=== PATIENT | female | born 1940 | race Hispanic/Latino ===

== ENCOUNTER 2023-12-06 18:43 | Emergency (ER) | payer OTHER ==
[~2023-12-06] VITALS: Ht 144.8 cm; Wt 49.9 kg
[2023-12-06 21:43] LABS: RAPID GROUP A STREP negative (NEGATIVE)
[2023-12-06 21:58] LABS: COVID19 (SARS ANTIGEN RAPID) PRESUMPTIVE NEGATIVE (NEGATIVE)
[2023-12-06 21:59] LABS: INFLUENZA TYPE A Negative For Type A (NEGATIVE); INFLUENZA TYPE B Negative For Type B (NEGATIVE)
[2023-12-06 22:17] LABS: BASOPHILS # (AUTO) 0.02 K/uL (0.00-0.20); BASOPHILS % (AUTO) 0.2 % (0.0-5.0); EOSINOPHILS # (AUTO) 0.19 K/uL (0.00-0.70); EOSINOPHILS % (AUTO) 2.1 % (0.0-8.0); HEMATOCRIT 31.4 % (36-48); IMMATURE GRANULOCYTE ABSOLUTE 0.02 K/uL (0-1); LYMPHOCYTES # (AUTO) 2.2 K/uL (1.0-4.8); LYMPHOCYTES % (AUTO) 23.9 % (21.0-51.0); MEAN CORPUSCULAR HEMOGLOBIN 30.1 pg (27.0-33.0); MEAN CORPUSCULAR HGB CONC 34.4 g/dL (32.0-36.0); MEAN CORPUSCULAR VOLUME 87.5 fL (79-99); MONOCYTES # (AUTO) 0.8 K/uL (0.1-1.0); MONOCYTES % (AUTO) 9.1 % (3.0-13.0); NEUTROPHILS # (AUTO) 5.9 K/uL (1.8-7.7); NEUTROPHILS % (AUTO) 64.5 % (40.0-77.0); PLATELET COUNT (AUTO) 311 K/uL (130-400); RED BLOOD CELL COUNT(AUTO) 3.59 MIL/uL (4.00-5.50); RED CELL DISTRIBUTION WIDTH 11.4 % (11.0-15.5); WHITE BLOOD COUNT (AUTO) 9.1 K/uL (4.8-10.8)
[2023-12-06 22:24] LABS: CREATININE 0.6 mg/dL (0.5-1.0); POTASSIUM 4.4 mmol/L (3.5-5.1)
[2023-12-06 22:35] LABS: ALBUMIN 3.5 g/dL (3.5-5.0); BILIRUBIN,TOTAL 0.3 mg/dL (0.2-1.0); TOTAL PROTEIN, SERUM 8.2 g/dL (6.0-8.3)
[2023-12-06 22:56] LABS: APPEARANCE,URINE CLEAR (CLEAR); BILIRUBIN,URINE NEGATIVE (NEGATIVE); COLOR,URINE COLORLESS (YELLOW); GLUCOSE, URINE (UA) NEGATIVE (NEGATIVE); KETONES,URINE NEGATIVE (NEGATIVE); LEUKOCYTE ESTERASE ,URINE NEGATIVE Leu/uL (NEGATIVE); NITRATE,URINE NEGATIVE (NEGATIVE); OCCULT BLOOD,URINE NEGATIVE (NEGATIVE); PROTEIN,URINE NEGATIVE (NEGATIVE); UROBILINOGEN,URINE 0.2 mg/dL (0.2-1.0)
[2023-12-06 22:58] LABS: ADD UA MICROSCOPIC NO
[2023-12-06 23:30] VITALS: BP 166/82; PULSE 83; RESP 17; O2SAT 98
== END 2023-12-07 00:21 | disposition home or self-care (01) ==
LOC: EDH 18:43
DX: R50.9 Fever, unspecified (principal); H92.03 Otalgia, bilateral; D64.9 Anemia, unspecified; J98.8 Other specified respiratory disorders; I10 Essential (primary) hypertension; E11.9 Type 2 diabetes mellitus without complications; E78.00 Pure hypercholesterolemia, unspecified; Z20.822 Contact with and (suspected) exposure to COVID-19
CPT/HCPCS: 36415; 71045; 80053; 81003; 85025; 87426; 87804; 87880

== ENCOUNTER 2025-02-02 13:18 | Observation (INO) | payer OTHER ==
[~2025-02-02] VITALS: Ht 149.9 cm; Wt 52.3 kg
--- NOTE | 2025-02-02 13:34 | EKG ---
[facility] Test Date: 2025-02-02 Test Time: 13:31:35 Pat Name: JAMES LOPEZ Department: EDH Room: ED Gender: F Demi Chef: [id number] : 1940 Requested By: JEFFREY SHAIKH Order Number: [id number] Reading MD: Eleno Cheema Measurements Intervals [place] Rate: 86 P: 57 ME: 137 QRS: 29 QRSD: 85 T: 65 QT: 367 QTc: 440 Interpretive Statements Sinus rhythm Probable left atrial enlargement No previous ECG available for comparison Electronically Signed On 02-02-2025 19:45:54 CDT by Eleno Cheema Please click the below link to view image of tracing.
--- NOTE | 2025-02-02 13:37 | ERN ---
General Chief Complaint: Shortness of Breath Stated Complaint: SOB Time Seen by MD: 13:20 Source: patient History of Present Illness Initial Comments Patient is a an 84-year-old female coming in complaining of chest pressure and shortness of breath. Patient states that these symptoms began earlier today. Via EMS patient the nitroglycerin aspirin as as breathing treatments states her symptoms improved. Patient received nitroglycerin and aspirin via EMS. Patient has a history of hypertension cholesterol and diabetes. Allergies: Coded Allergies: No Known Drug Allergies (Unverified Allergy, Unknown, 02/02/25) Past Medical History Past Medical History: Diabetes-Type II, High Cholesterol, Hypertension Past Surgical History: None Social History Social History: Negative ROS Dictation CONSTITUTIONAL: No chills, no fever, no weakness, no diaphoresis, no malaise. HEAD/FACE: No signs of trauma. EENT: No eye pain, no blurred vision, no tearing, no double vision, no ear pain, no ear discharge, no nose pain, no nasal congestion, no throat pain, no throat swelling, no mouth pain. RESPIRATORY: No cough, no orthopnea, SOB, no stridor, no wheezing. CARDIOVASCULAR: chest pain, no edema, no palpitations, no syncope. GASTROINTESTINAL/ABDOMINAL: No abdominal pain, no constipation, no diarrhea, no nausea, no vomiting. GENITOURINARY: No abnormal discharge, no dysuria, no frequent urination, no hematuria. No complaints of pain in the genitals. MUSCULOSKELETAL: No back pain, no gout, no joint pain, no joint swelling, no muscle pain, no muscle stiffness, no neck pain. INTEGUMENTARY: No change in color, no change in hair/nails, no dryness, no lesion, no lumps, no rash. NEUROLOGICAL/PSYCH: No anxiety, not depressed, no emotional problem, no headache, no numbness, no pre-existing deficit, no history of seizures, no tremors, no weakness. HEMATOLOGIC/LYMPHATIC: Not anemic, no history of blood clots, no apparent bleeding, no bruising, glands not swollen. All Systems Negative, Except as Noted. Physical Exam Physical Exam Dictation VITAL SIGNS: Reviewed. GENERAL APPEARANCE: Alert, oriented x3, no acute distress, obese. HEAD AND FACE: Non-traumatic. EYES: PERRL, pink conjunctivas, eyelid no trauma, anterior chamber clear. EARS: Pinnas intact and no signs of trauma or erythema. Ear canals clear and no discharge. TMs no erythema. NOSE: No discharge, no bleeding. OROPHARYNX: Mouth normal, teeth no caries, tongue pink. Pharynx clear, no erythema. Tonsils no exudates, no abscesses noted. Mucous membrane moist. NECK: Supple, non-tender, no thyromegaly, no masses, no JVD, no bruits. BREAST: Deferred. CHEST: No tenderness, no crepitus, no paradoxical movement, no retractions. LUNGS: Clear, well-ventilated, symmetric, no rales, no wheezing, no rhonchi, no stridor, good breath sounds bilaterally. HEART: Regular rate, regular rhythm, no murmur, no gallops. VASCULAR: No peripheral edema. ABDOMEN: Soft, positive bowel sounds, nondistended, no guarding, nontender, no r ebound, no masses no hepatomegaly, no splenomegaly, no Ayala's sign, no hernias. RECTAL: Deferred. GENITAL: Deferred. NEUROLOGICAL: Normal speech, gross motor function intact, gross sensory function intact. MUSCULOSKELETAL: Neck nontender, full range of motion, back nontender, full range of motion. EXTREMITIES: Nontender, full range of motion. SKIN: Color pink, dry, no turgor, no rash, no lacerations, no abrasions, no contusions. LYMPHATICS: Deferred. Results Laboratory and Microbiology Lab and Micro Result Laboratory Tests Test 02/02/25 13:34 02/02/25 15:09 02/02/25 15:42 02/02/25 15:55 White Blood Count 5.5 K/uL (4.8-10.8) Red Blood Count 4.19 MIL/uL (4.00-5.50) Hemoglobin 13.2 g/dL (12.0-16.0) Hematocrit 38.5 % (36-48) Mean Corpuscular Volume 91.9 fL (79-99) Mean Corpuscular Hemoglobin 31.5 pg (27.0-33.0) Mean Corpuscular Hemoglobin Concent 34.3 g/dL (32.0-36.0) Red Cell Distribution Width 12.9 % (11.0-15.5) Platelet Count 235 K/uL (130-400) Mean Platelet Volume 9.4 fL (7.5-10.5) Immature Granulocyte % (Auto) 0.5 % (0-1) Neutrophils (%) (Auto) 58.0 % (40.0-77.0) Lymphocytes (%) (Auto) 32.7 % (21.0-51.0) Monocytes (%) (Auto) 6.0 % (3.0-13.0) Eosinophils (%) (Auto) 2.6 % (0.0-8.0) Basophils (%) (Auto) 0.2 % (0.0-5.0) Neutrophils # (Auto) 3.2 K/uL (1.8-7.7) Lymphocytes # (Auto) 1.8 K/uL (1.0-4.8) Monocytes # (Auto) 0.3 K/uL (0.1-1.0) Eosinophils # (Auto) 0.14 K/uL (0.00-0.70) Basophils # (Auto) 0.01 K/uL (0.00-0.20) Absolute Immature Granulocyte (auto 0.03 K/uL (0-1) Nucleated Red Blood Cells 0.0 % (0.0-0.19) Sodium Level 135 mmol/L (136-145) L Potassium Level 3.9 mmol/L (3.5-5.1) Chloride Level 100 mmol/L (101-111) L Carbon Dioxide Level 28 mmol/L (21-32) Blood Urea Nitrogen 20 mg/dL (7-18) H Creatinine 1.0 mg/dL (0.5-1.0) Glomerular Filtration Rate Calc 56 mL/min (>90) Random Glucose 190 mg/dL (70-105) H Total Calcium 9.3 mg/dL (8.5-10.1) Troponin I High Sensitivity 12 ng/L (4-50) 14 ng/L (4-50) B-Type Natriuretic Peptide 18 pg/mL (0-100) Urine Color LIGHT-YELLOW (YELLOW) Urine Appearance CLEAR (CLEAR) Urine pH 5.5 (5.0-8.0) Urine Specific [place] 1.016 (1.001-1.031) Urine Protein NEGATIVE mg/dL (NEGATIVE) Urine Glucose (UA) NEGATIVE mg/dL (NEGATIVE) Urine Ketones NEGATIVE mg/dL (NEGATIVE) Urine Occult Blood +- (TRACE) (NEGATIVE) H Urine Nitrate NEGATIVE (NEGATIVE) Urine Bilirubin NEGATIVE mg/dL (NEGATIVE) Urine Urobilinogen 0.2 mg/dL (0.2-1.0) Urine Leukocyte Esterase NEGATIVE Iman/uL Urine RBC 0-1 /HPF (0-1) Urine WBC 0-1 /HPF (0-1) Urine Squamous Epithelial Cells RARE /HPF (0-2) Urine Bacteria RARE /HPF (None Seen) Urine Hyaline Casts 0-1 /LPF (0-1 /LPF) Influenza Type A Antigen Negative For Type A Influenza Type B Antigen Negative For Type B SARS-CoV-2, RNA, NAAT NEGATIVE SARS CoV-2 Group A Streptococcus Rapid negative (NEGATIVE) Labs Reviewed?: Yes EKG/XRAY/US/CT/MRI EKG Comment [id number] time 1:31 p.m. Ventricular rate 86 Sinus rhythm [place] [address] wave elevation or depression X-RAY Comment [address] [address] IMAGING REPORT Signed PATIENT: JAMES LOPEZ MR#: [id number] : 1940 SEX: F AGE: 84 LOCATION: ED ORDER 1323 STATUS: [facility] REPORT#: [id number] SERVICE 1322 REASON: sob ORDERING PHYSICIAN: JEFFREY SHAIKH MD PROCEDURE: CXR1VW - CHEST 1VW CHEST 1VW REASON: sob COMPARISON: 12/06/2023 FINDINGS: Single view of the chest was obtained. Lungs are clear. Heart size is normal. There is no pulmonary vascular congestion. Mediastinum and bony thorax appear unremarkable. IMPRESSION: 1. Normal single view chest x-ray. DICTATED BY: GEETHA BLAND MD DATE: 02/02/25 1345 ELECTRONICALLY SIGNED BY: GEETHA BLAND MD DATE: 02/02/25 1421 [facility] MDM: Differential diagnosis: Chest pain, shortness of breath, history of diabetes, history of hypertension, history of cholesterol Rationale: Tests considered and ordered secondary to shared decision making include: labs, ECG and radiology Previous outside records reviewed: Old ER visits. Risk of complication and/or morbidity or mortality of patient management: None Medications-Per medication reconciliation Need for hospitalization: Patient does meet criteria for hospitalization. Need for emergency major/minor surgery: No There are no social concerns with this patient. Prescription drug management Prescriptions will include symptomatic care Patient's prior external medical records from other ER visits were reviewed by me as indicated. Prior testing and results from previous visits were reviewed. Prior tests were taken into account with medical decision making and resource utilization, independent historian/historians were used to obtain complete medical history. I independently interpreted the test that were performed, results were reviewed by me and considered findings on radiology if ordered. Medical management and examination interpretation discussions were had by me with other qualified healthcare professionals as indicated for the patient's care. Patient is a 84-year-old female coming in complaining of chest pressure chest discomfort. Via EMS patient received a nitroglycerin and an aspirin states her symptoms improved mildly. Throughout ER visit patient's symptoms have gradually improved. Due to the presentation she initially came in with a patient will be admitted for further evaluation. Her heart score is high based on her comorbidities. Patient will be admitted under the care of hospitalist group. ED Course Orders Procedure Category Date Status Time Cbc With Differential LAB 02/02/25 Complete 13:22 B-Type Natriuretic LAB 02/02/25 Complete Peptide 13:22 Chest 1vw RAD 02/02/25 Resulted 13:22 12 Lead Ekg Tracing- EKG 02/02/25 Complete Technical 13:22 Troponin I High LAB 02/02/25 Complete Sensitivity 13:22 Urinalysis Profile LAB 02/02/25 Complete 13:22 Basic Metabolic Panel LAB 02/02/25 Complete 13:22 Covid Rna Naat LAB 02/02/25 Complete 15:30 Influenza Type A & B, LAB 02/02/25 Complete Rapid 15:30 Rapid (Group A Strep) LAB 02/02/25 Complete 15:30 Troponin I High LAB 02/02/25 Complete Sensitivity 15:34 Methylprednisolone PHA 02/02/25 Complete Succ 40mg (Solu-Medro 16:00 0.9%Nacl 1000ml (Ns PHA 02/02/25 Complete 1000ml) 16:30 Current Medications Medications (Trade) Dose Ordered Sig/Maggie Route PRN Reason Start Time Stop Time Status Last Admin Dose Admin Methylprednisolone Sodium Succinate (Solu-medROL 40MG) 60 mg ONCE ONCE IVP 02/02/25 16:00 02/02/25 16:04 DC 02/02/25 16:13 Sodium Chloride 1,000 ml @ 0 mls/hr ONCE ONCE IV 02/02/25 16:30 02/02/25 16:31 DC 02/02/25 16:13 Vital Signs Date Time Temp Pulse Resp B/P (MAP) Pulse Ox O2 Delivery O2 Flow Rate FiO2 02/02/25 14:43 98.8 77 19 149/74 100 Nasal Cannula* 2 28 02/02/25 13:34 98.8 86 28 157/73 Nasal Cannula* 2 28 02/02/25 13:21 98.2 93 22 117/75 100 Nonrebreathing Mask 10.0 DX & DISP Disposition: Inpatient Decision to Admit Time: 17:18 Departure Impression: Primary Impression: Chest pain Condition: Stable Referrals: BASIL PAVON MD (PCP) JEFFREY SHAIKH MD Feb 02, 2025 13:37
[2025-02-02 13:38] LABS: BASOPHILS # (AUTO) 0.01 K/uL (0.00-0.20); BASOPHILS % (AUTO) 0.2 % (0.0-5.0); EOSINOPHILS # (AUTO) 0.14 K/uL (0.00-0.70); EOSINOPHILS % (AUTO) 2.6 % (0.0-8.0); HEMATOCRIT 38.5 % (36-48); IMMATURE GRANULOCYTE ABSOLUTE 0.03 K/uL (0-1); LYMPHOCYTES # (AUTO) 1.8 K/uL (1.0-4.8); LYMPHOCYTES % (AUTO) 32.7 % (21.0-51.0); MEAN CORPUSCULAR HEMOGLOBIN 31.5 pg (27.0-33.0); MEAN CORPUSCULAR HGB CONC 34.3 g/dL (32.0-36.0); MEAN CORPUSCULAR VOLUME 91.9 fL (79-99); MONOCYTES # (AUTO) 0.3 K/uL (0.1-1.0); NEUTROPHILS # (AUTO) 3.2 K/uL (1.8-7.7); PLATELET COUNT (AUTO) 235 K/uL (130-400); RED BLOOD CELL COUNT(AUTO) 4.19 MIL/uL (4.00-5.50); RED CELL DISTRIBUTION WIDTH 12.9 % (11.0-15.5); WHITE BLOOD COUNT (AUTO) 5.5 K/uL (4.8-10.8)
[2025-02-02 13:48] LABS: POTASSIUM 3.9 mmol/L (3.5-5.1)
--- NOTE | 2025-02-02 13:50 | HMCIMG ---
CHEST 1VW REASON: sob COMPARISON: 12/06/2023 FINDINGS: Single view of the chest was obtained. Lungs are clear. Heart size is normal. There is no pulmonary vascular congestion. Mediastinum and bony thorax appear unremarkable. IMPRESSION: 1. Normal single view chest x-ray.
[2025-02-02 14:01] LABS: B-TYPE NATRIURETIC PEPTIDE 18 pg/mL (0-100)
[2025-02-02 15:28] LABS: APPEARANCE,URINE CLEAR (CLEAR); BILIRUBIN,URINE NEGATIVE (NEGATIVE); COLOR,URINE LIGHT-YELLOW (YELLOW); GLUCOSE, URINE (UA) NEGATIVE (NEGATIVE); KETONES,URINE NEGATIVE (NEGATIVE); LEUKOCYTE ESTERASE ,URINE NEGATIVE Leu/uL (NEGATIVE); NITRATE,URINE NEGATIVE (NEGATIVE); PH,URINE 5.5 (5.0-8.0); PROTEIN,URINE NEGATIVE (NEGATIVE); UROBILINOGEN,URINE 0.2 mg/dL (0.2-1.0)
[2025-02-02 15:34] LABS: ADD UA MICROSCOPIC YES
[2025-02-02 15:36] LABS: BACTERIA,URINE RARE /HPF (None Seen); HYALINE CASTS, URINE 0-1 /LPF (0-1 /LPF); MUCUS,URINE RARE LPF (None Seen); RBC,URINE 0-1 /HPF (0-1); SQUAMOUS EPITHELIAL CELL,UR RARE /HPF (0-2); WBC,URINE 0-1 /HPF (0-1)
[2025-02-02 16:00] LABS: RAPID GROUP A STREP negative (NEGATIVE)
[2025-02-02 16:05] LABS: SARS-CoV-2, RNA, NAAT NEGATIVE SARS CoV-2 (NEGATIVE)
[2025-02-02 16:11] LABS: INFLUENZA TYPE A Negative For Type A (NEGATIVE); INFLUENZA TYPE B Negative For Type B (NEGATIVE)
[2025-02-02] MEDS: 0.9%NACL 1000ML 1,000 ML IV ONE (16:13)
[2025-02-02] MEDS: Solu-medROL 40MG VIAL IVP ONE (16:13)
--- NOTE | 2025-02-02 17:27 | HP ---
[facility] Date of Service: Feb 02, 2025 Time of Service: 17:27 PCP: Dr.Rafel Farias HISTORY OF PRESENT ILLNESS: [84-year-old female with past medical history of diabetes mellitus, hyperlipidemia, presented to the emergency department with complaints of chest pain/pressure that started 5-10 minutes after she showered. Patient described the chest pressure like someone is sitting on her chest." Patient took "Sukumar Aspirin" and her called 911. Associated symptoms include diaphoresis. She denies dizziness, shortness of breaths, nausea, vomiting. EMS came inpatient was given three baby aspirins and one nitro sublingually. Patient was brought to the emergency department for further evaluation. In the ED, her initial vitals showed: Temperature 98.2 F, pulse 93, respiratory rate 22-28 breaths per minute, blood pressure 117/75, currently at 158/73, 100% on room air. Labs reviewed, Hematology is fairly unremarkable. Chemistry showed the sodium 135, chloride 100, BUN 20, creatinine 1, GFR 56, random glucose 190. Her troponin was trended which showed ,14 and 15, BNP 18. Twelve lead EKGs showed sinus rhythm with heart rate at 86, probable left atrial enlargement. While in the ED, the primary nurse noticed patient has rash on her neck and on her back. She received Solu-Medrol 60 mg IV x1, suspecting allergy to nitroglycerin. She was referred to the hospitalist for further evaluation and management. REVIEW OF SYSTEMS CONSTITUTIONAL: Denies fevers, chills, or night sweats. No unintentional weight loss reported. NEUROLOGICAL: Denies headache, amaurosis fugax, motor weakness, sensory deficit, vertigo/spinning sensation, gait abnormalities, or tremors. ENT: No hearing loss, otalgia, otorrhea, rhinitis, rhinorrhea, hoarseness, or sore throat. CARDIOVASCULAR: Denies any exertional angina, dyspnea on exertion, orthopnea, paroxysmal nocturnal dyspnea, palpitations, life-threatening arrhythmias, claudication. PULMONARY: Denies any shortness of breath, cough, phlegm/sputum, hemoptysis, pleuritic chest pain. SLEEP: Denies morning headaches, daytime somnolence or napping. Denies di fficulty falling asleep, staying asleep, waking from sleep. Denies knowledge of snoring. GASTROINTESTINAL: Denies any type of dysphagia to either liquids or solids. Denies nausea, vomiting, pyrosis, early satiety, abdominal pain, diarrhea, constipation, or changes in stool consistency or caliber. Denies coffee-ground emesis, hematemesis, hematochezia, or melanotic stools. GENITOURINARY: Denies frequency, urgency, nocturia, hematuria or incontinence (Storage/Irritative symptoms.) Low urinary stream, straining to void, urinary intermittency or hesitancy, splitting of the voiding stream, terminal dribbling. ENDOCRINOLOGIC: Denies polyuria, polydipsia, polyphagia or heat/cold intolerances. HEMATOLOGIC: Denies thrombophilia/previous clots, or coagulopathy/bleeding disorders. ONCOLOGIC: Denies personal history of malignancy. DERMATOLOGIC: Denies rashes or pruritus. PSYCHIATRIC: Denies any suicidal or homicidal ideation. Denies hallucinations. PAST MEDICAL HISTORY: [ Hyperlipidemia, diabetes mellitus, hypertension] PAST SURGICAL HISTORY: [ Denies any surgical history ] PAST SOCIAL HISTORY: [Lives with her . They live in [place]. They have two adult children. Patient is vegetarian. Patient denies tobacco, alcohol illicit drug use ] FAMILY HISTORY: [ Noncontributory ] Coded Allergies: No Known Drug Allergies (Unverified Allergy, Unknown, 02/02/25) PHYSICAL EXAM GENERAL APPEARANCE: The patient is awake, alert, and oriented, in no acute cardiopulmonary distress. NEUROLOGICAL: Cranial nerves II-XII grossly intact. Motor is 5/5 in bilateral upper and lower extremities proximal to distal. No sensory deficits. HEENT: Face is symmetric. Pupils are equal and reactive. Extraocular movements are intact. NECK: Supple. No JVD. No thyromegaly. No submental, submandibular, pre- /postauricular, occipital or supraclavicular lymphadenopathy. CHEST: Normal chest expansion. No Telemetry. LUNGS: Absence of any rales, rhonchi or any wheezing. CARDIOVASCULAR: Regular. S1 and S2 normal. No appreciable rubs, murmurs or gallops. ABDOMEN: Soft, nontender, and nondistended. There is no rebound, voluntary guarding, or rigidity. : Deferred. No Cisneros. EXTREMITIES: Non-edematous and not cyanotic. No clubbing. Good capillary refill. SKIN: No skin breakdown. Vital Sign (Last 24 Hours) 02/02/25 14:43 Temp 98.8 Pulse 77 Resp 19 B/P (MAP) 149/74 Pulse Ox 100 O2 Delivery Nasal Cannula* O2 Flow Rate 2 FiO2 28 LABS: Laboratory: Test 02/02/25 15:55 02/02/25 15:42 02/02/25 15:09 02/02/25 13:34 Range/Units Troponin I High Sensitivity 14 4-50 ng/L Influenza Type A Antigen Negative For Type A NEGATIVE Influenza Type B Antigen Negative For Type B NEGATIVE SARS-CoV-2, RNA, NAAT NEGATIVE SARS CoV-2 NEGATIVE Group A Streptococcus Rapid negative NEGATIVE Urine Color LIGHT-YELLOW YELLOW Urine Appearance CLEAR CLEAR Urine pH 5.5 5.0-8.0 Urine Specific [place] 1.016 1.001-1.031 Urine Protein NEGATIVE NEGATIVE mg/dL Urine Glucose (UA) NEGATIVE NEGATIVE mg/dL Urine Ketones NEGATIVE NEGATIVE mg/dL Urine Occult Blood +- (TRACE) H NEGATIVE Urine Nitrate NEGATIVE NEGATIVE Urine Bilirubin NEGATIVE NEGATIVE mg/dL Urine Urobilinogen 0.2 0.2-1.0 mg/dL Urine Leukocyte Esterase NEGATIVE NEGATIVE Iman/uL Urine RBC 0-1 0-1 /HPF Urine WBC 0-1 0-1 /HPF Urine Squamous Epithelial Cells RARE 0-2 /HPF Urine Bacteria RARE None Seen /HPF Urine Hyaline Casts 0-1 0-1 /LPF /LPF White Blood Count 5.5 4.8-10.8 K/uL Red Blood Count 4.19 4.00-5.50 MIL/uL Hemoglobin 13.2 12.0-16.0 g/dL Hematocrit 38.5 36-48 % Mean Corpuscular Volume 91.9 79-99 fL Mean Corpuscular Hemoglobin 31.5 27.0-33.0 pg Mean Corpuscular Hemoglobin Concent 34.3 32.0-36.0 g/dL Red Cell Distribution Width 12.9 11.0-15.5 % Platelet Count 235 130-400 K/uL Mean Platelet Volume 9.4 7.5-10.5 fL Immature Granulocyte % (Auto) 0.5 0-1 % Neutrophils (%) (Auto) 58.0 40.0-77.0 % Lymphocytes (%) (Auto) 32.7 21.0-51.0 % Monocytes (%) (Auto) 6.0 3.0-13.0 % Eosinophils (%) (Auto) 2.6 0.0-8.0 % Basophils (%) (Auto) 0.2 0.0-5.0 % Neutrophils # (Auto) 3.2 1.8-7.7 K/uL Lymphocytes # (Auto) 1.8 1.0-4.8 K/uL Monocytes # (Auto) 0.3 0.1-1.0 K/uL Eosinophils # (Auto) 0.14 0.00-0.70 K/uL Basophils # (Auto) 0.01 0.00-0.20 K/uL Absolute Immature Granulocyte (auto 0.03 0-1 K/uL Nucleated Red Blood Cells 0.0 0.0-0.19 % Sodium Level 135 L 136-145 mmol/L Potassium Level 3.9 3.5-5.1 mmol/L Chloride Level 100 L 101-111 mmol/L Carbon Dioxide Level 28 21-32 mmol/L Blood Urea Nitrogen 20 H 7-18 mg/dL Creatinine 1.0 0.5-1.0 mg/dL Glomerular Filtration Rate Calc 56 >90 mL/min Random Glucose 190 H 70-105 mg/dL Total Calcium 9.3 8.5-10.1 mg/dL B-Type Natriuretic Peptide 18 0-100 pg/mL DIAGNOSTICS / RADIOLOGY: [place] [address] IMAGING REPORT Signed PATIENT: JAMES LOPEZ MR#: [id number] : 1940 SEX: F AGE: 84 LOCATION: [facility] ORDER 22 STATUS: REG ER REPORT#: [id number] SERVICE 1322 REASON: sob ORDERING PHYSICIAN: JEFFREY SHAIKH MD PROCEDURE: CXR1VW - CHEST 1VW CHEST 1VW REASON: sob COMPARISON: 12/06/2023 FINDINGS: Single view of the chest was obtained. Lungs are clear. Heart size is normal. There is no pulmonary vascular congestion. Mediastinum and bony thorax appear unremarkable. IMPRESSION: 1. Normal single view chest x-ray. DICTATED BY: GEETHA BLAND MD DATE: 02/02/251344 ELECTRONICALLY SIGNED BY: GEETHA BLAND MD DATE: 02/02/25 1421 ] ASSESSMENT: [Chest pain r/o ACS, POA Allergic reaction, unknown cause, POA Hyperglycemia with diabetes mellitus, POA Hypertension, POA Hyperlipidemia ] PLAN: [ Place in observation on telemetry floor to rule out acute coronary syndrome. Check serial cardiac enzymes every 8 hours 3 sets to rule out myocardial injury Start on antiplatelet agents, beta regina, nitrates, low molecular weight AC, morphine, oxygen. Check 2-D echocardiogram to evaluate for regional wall motion abnormalities, and cardiac enzymes have been normal will check nuclear stress test in the morning to rule out reversible ischemia. Cardiology consult in a.m. Patient will be on a.c. HS glucometer and insulin sliding scale Patient will be on diabetic diet Add when necessary meds for nausea, vomiting, pain, constipation, insomnia. Continue Lovenox and Protonix for DVT and GI prophylaxis. FULL CODE Case discussed with Dr. Wilhelm above plan was formulated. ADVANCED CARE PLANNING 1. Which of the following were discussed? Hospice Care - Yes / No Therapeutic options - Yes / No Advance Directives - Yes / No Other discussions - 2. Discussed with who? Patient 3. Voluntary nature of this service was explained to the patient? Yes / No 4. Amount of time spent - __20 mins 5. Reviewed by Physician? (if this service was performed by NPP) Yes / No ] ATTESTATION BY PHYSICIAN I have seen and examined the patient. I reviewed the documentation, medical decision making, and treatment plan as noted by the mid-level provider above. I agree with the findings and plan of care. ANAHY WILHELM MD, JANICE B [facility] Feb 02, 2025 17:27
[2025-02-02] MEDS ORDERED: ondanSETRON 4MG INJ IVP PRN (18:00)
[2025-02-02] MEDS ORDERED: DEXTROSE 50%-WATER 50 ML DISP.SYRIN IV PRN (18:00)
[2025-02-02] MEDS ORDERED: MAGNESIUM 2GM PREMIX 50ML 50 ML IV PRN (18:00)
[2025-02-02] MEDS ORDERED: GLUCAGON 1MG KIT 1 MG ML IM PRN (18:00)
[2025-02-02] MEDS ORDERED: acetaMINOPHEN 325 MG TAB PO PRN ×2 (18:00)
[2025-02-02] MEDS ORDERED: morPHINE 2 MG SYG IVP PRN (18:30)
[2025-02-02] MEDS: LoSARTan 25 MG TABLET PO ONE (19:04)
--- NOTE | 2025-02-02 19:13 | NUR ---
PENDING TO BRING MEDICATIONS FROM HOME.
[2025-02-02] MEDS ORDERED: METF-1151 PO (21:38)
[2025-02-02] MEDS ORDERED: AMLO-257 PO (21:38)
[2025-02-02] MEDS ORDERED: LOSA100T59 PO (21:38)
[2025-02-02] MEDS ORDERED: PRAV40TA3 PO (21:38)
[2025-02-02] MEDS ORDERED: GLIM4TAB36 PO (21:38)
[2025-02-02] MEDS: INSULIN humuLIN R 100 UNIT/ML 3ML SQ SCH (21:57)
[2025-02-02] MEDS: metoPROLOL tartRATE 25 MG TAB PO SCH (21:57)
[2025-02-02] MEDS: FAMOTIDINE 20MG TAB PO SCH (21:57)
--- NOTE | 2025-02-03 01:46 | NUR ---
REPORT GIVEN TO ELAINE OLSON
[2025-02-03 02:15] VITALS: BP 148/80; PULSE 80; RESP 18; TEMP 97.5
--- NOTE | 2025-02-03 02:15 | NUR ---
arrived fro er via stretcher, aaox3 ambulating well, iv saline locked, patent.
[2025-02-03 02:36] VITALS: O2SAT 98
[2025-02-03 05:44] LABS: HEMATOCRIT 33.6 % (36-48); MEAN CORPUSCULAR HEMOGLOBIN 31.5 pg (27.0-33.0); MEAN CORPUSCULAR HGB CONC 34.5 g/dL (32.0-36.0); MEAN CORPUSCULAR VOLUME 91.3 fL (79-99); RED BLOOD CELL COUNT(AUTO) 3.68 MIL/uL (4.00-5.50); RED CELL DISTRIBUTION WIDTH 12.7 % (11.0-15.5); WHITE BLOOD COUNT (AUTO) 9.5 K/uL (4.8-10.8)
[2025-02-03 05:58] LABS: CREATININE 0.8 mg/dL (0.5-1.0); MAGNESIUM 1.9 mg/dL (1.80-2.40); POTASSIUM 4.3 mmol/L (3.5-5.1)
[2025-02-03 07:55] VITALS: BP 153/81; PULSE 80; RESP 18; TEMP 98.1
[2025-02-03] MEDS: ASPIRIN 81 MG EC TAB PO SCH (09:45)
[2025-02-03] MEDS: LoSARTan 25 MG TABLET PO SCH (09:45)
[2025-02-03] MEDS: ENOXAPARIN SODIUM 30 MG/0.3 ML SQ SCH (09:47)
--- NOTE | 2025-02-03 10:55 | PN ---
[facility] PROGRESS NOTE Date of Service: Feb 03, 2025 Time of Service: 10:51 SUBJECTIVE: 84-year-old female with past medical history of diabetes mellitus, hyperlipidemia, presented to the emergency department with complaints of chest pain/pressure that started 5-10 minutes after she showered. Patient described the chest pressure like someone is sitting on her chest." Patient took "Sukumar Aspirin" and her called 911. Associated symptoms included diaphoresis. She denied dizziness, shortness of breaths, nausea, vomiting. EMS came inpatient was given three baby aspirins and one nitro sublingually. Patient was brought to the emergency department for further evaluation. In the ED, her initial vitals showed: Temperature 98.2 F, pulse 93, respiratory rate 22-28 breaths per minute, blood pressure 117/75, currently at 158/73, 100% on room air. Labs reviewed, Hematology is fairly unremarkable. Chemistry showed the sodium 135, chloride 100, BUN 20, creatinine 1, GFR 56, random glucose 190. Her troponin was trended which showed ,14 and 15, BNP 18. Twelve lead EKGs showed sinus rhythm with heart rate at 86, probable left atrial enlargement. While in the ED, the primary nurse noticed patient had rash on her neck and on her back. She received Solu-Medrol 60 mg IV x1, suspecting allergy to nitroglycerin. She was referred to the hospitalist for further evaluation and management. 02/03 the patient has been seen and examined during my rounding, case discussed with the RN, no acute events overnight, during my visit the patient remains comfortably in bed, she is alert oriented x3, she denies dizziness, no headache, no blurry vision, no chest pain, no shortness a breath, no nausea, no vomiting, no abdominal discomfort. and son are at the bedside during my visit. According to the story, the patient developed sensation of chest discomfort, after she took a hot shower yesterday, she denied episode like this in the past. The pain got relieved after sublingual nitroglycerin, however after that apparently the patient developed hives in the entire body that improved with Solu-Medrol. At the time of my visit there is no erythema noted to the skin, she denies any itching. She follows as an outpatient with Dr. Ned Farias in [place], she has been told in the last visit few months ago that she has anemia, however, has not had a recent workup for that. Today the blood pressure 153/81, afebrile, saturating normal on room air. Hemoglobin today 11.6, hematocrit 33.6. Troponins has remained negative. Serology to include influenza, SARS and group a strep negative. REVIEW OF SYSTEMS CONSTITUTIONAL: Denies fevers, chills, or night sweats. No unintentional weight loss reported. NEUROLOGICAL: Denies headache, amaurosis fugax, motor weakness, sensory deficit, vertigo/spinning sensation, gait abnormalities, or tremors. ENT: No hearing loss, otalgia, otorrhea, rhinitis, rhinorrhea, hoarseness, or sore throat. CARDIOVASCULAR: Denies any exertional angina, dyspnea on exertion, orthopnea, paroxysmal nocturnal dyspnea, palpitations, life-threatening arrhythmias, claudication. PULMONARY: Denies any shortness of breath, cough, phlegm/sputum, hemoptysis, pleuritic chest pain. SLEEP: Denies morning headaches, daytime somnolence or napping. Denies difficulty falling asleep, staying asleep, waking from sleep. Denies knowledge of snoring. GASTROINTESTINAL: Denies any type of dysphagia to either liquids or solids. Denies nausea, vomiting, pyrosis, early satiety, abdominal pain, diarrhea, constipation, or changes in stool consistency or caliber. Denies coffee-ground emesis, hematemesis, hematochezia, or melanotic stools. GENITOURINARY: Denies frequency, urgency, nocturia, hematuria or incontinence (Storage/Irritative symptoms.) Low urinary stream, straining to void, urinary intermittency or hesitancy, splitting of the voiding stream, terminal dribbling. ENDOCRINOLOGIC: Denies polyuria, polydipsia, polyphagia or heat/cold intolerances. HEMATOLOGIC: Denies thrombophilia/previous clots, or coagulopathy/bleeding disorders. ONCOLOGIC: Denies personal history of malignancy. DERMATOLOGIC: Denies rashes or pruritus. PSYCHIATRIC: Denies any suicidal or homicidal ideation. Denies hallucinations. PHYSICAL EXAM GENERAL APPEARANCE: The patient is awake, alert, and oriented, in no acute cardiopulmonary distress. NEUROLOGICAL: Cranial nerves II-XII grossly intact. Motor is 5/5 in bilateral upper and lower extremities proximal to distal. No sensory deficits. HEENT: Face is symmetric. Pupils are equal and reactive. Extraocular movements are intact. NECK: Supple. No JVD. No thyromegaly. No submental, submandibular, pre- /postauricular, occipital or supraclavicular lymphadenopathy. CHEST: Normal chest expansion. No Telemetry. LUNGS: Absence of any rales, rhonchi or any wheezing. CARDIOVASCULAR: Regular. S1 and S2 normal. No appreciable rubs, murmurs or gallops. ABDOMEN: Soft, nontender, and nondistended. There is no rebound, voluntary guarding, or rigidity. : Deferred. No Cisneros. EXTREMITIES: Non-edematous and not cyanotic. No clubbing. Good capillary refill. SKIN: No skin breakdown. Vital Signs (last 8hr) Date Time Temp Pulse Resp B/P (MAP) Pulse Ox O2 Delivery O2 Flow Rate FiO2 02/03/25 07:55 98.1 80 18 153/81 96 Room Air LABS: Laboratory: Test 02/03/25 10:39 02/03/25 09:16 02/03/25 05:37 02/02/25 15:42 Range/Units Whole Blood Glucose 225 H 70-110 MG/DL Troponin I High Sensitivity 12 4-50 ng/L White Blood Count 9.5 # 4.8-10.8 K/uL Red Blood Count 3.68 L 4.00-5.50 MIL/uL Hemoglobin 11.6 L 12.0-16.0 g/dL Hematocrit 33.6 L 36-48 % Mean Corpuscular Volume 91.3 79-99 fL Mean Corpuscular Hemoglobin 31.5 27.0-33.0 pg Mean Corpuscular Hemoglobin Concent 34.5 32.0-36.0 g/dL Red Cell Distribution Width 12.7 11.0-15.5 % Platelet Count 218 130-400 K/uL Mean Platelet Volume 9.5 7.5-10.5 fL Nucleated Red Blood Cells 0.0 0.0-0.19 % Sodium Level 136 136-145 mmol/L Potassium Level 4.3 3.5-5.1 mmol/L Chloride Level 104 101-111 mmol/L Carbon Dioxide Level 22 21-32 mmol/L Blood Urea Nitrogen 16 7-18 mg/dL Creatinine 0.8 0.5-1.0 mg/dL Glomerular Filtration Rate Calc 74 >90 mL/min Random Glucose 198 H 70-105 mg/dL Total Calcium 9.2 8.5-10.1 mg/dL Magnesium Level 1.90 1.80-2.40 mg/dL Influenza Type A Antigen Negative For Type A NEGATIVE Influenza Type B Antigen Negative For Type B NEGATIVE SARS-CoV-2, RNA, NAAT NEGATIVE SARS CoV-2 NEGATIVE Group A Streptococcus Rapid negative NEGATIVE Test 02/02/25 15:09 02/02/25 13:34 Range/Units Urine Color LIGHT-YELLOW YELLOW Urine Appearance CLEAR CLEAR Urine pH 5.5 5.0-8.0 Urine Specific [place] 1.016 1.001-1.031 Urine Protein NEGATIVE NEGATIVE mg/dL Urine Glucose (UA) NEGATIVE NEGATIVE mg/dL Urine Ketones NEGATIVE NEGATIVE mg/dL Urine Occult Blood +- (TRACE) H NEGATIVE Urine Nitrate NEGATIVE NEGATIVE Urine Bilirubin NEGATIVE NEGATIVE mg/dL Urine Urobilinogen 0.2 0.2-1.0 mg/dL Urine Leukocyte Esterase NEGATIVE NEGATIVE Iman/uL Urine RBC 0-1 0-1 /HPF Urine WBC 0-1 0-1 /HPF Urine Squamous Epithelial Cells RARE 0-2 /HPF Urine Bacteria RARE None Seen /HPF Urine Hyaline Casts 0-1 0-1 /LPF /LPF Immature Granulocyte % (Auto) 0.5 0-1 % Neutrophils (%) (Auto) 58.0 40.0-77.0 % Lymphocytes (%) (Auto) 32.7 21.0-51.0 % Monocytes (%) (Auto) 6.0 3.0-13.0 % Eosinophils (%) (Auto) 2.6 0.0-8.0 % Basophils (%) (Auto) 0.2 0.0-5.0 % Neutrophils # (Auto) 3.2 1.8-7.7 K/uL Lymphocytes # (Auto) 1.8 1.0-4.8 K/uL Monocytes # (Auto) 0.3 0.1-1.0 K/uL Eosinophils # (Auto) 0.14 0.00-0.70 K/uL Basophils # (Auto) 0.01 0.00-0.20 K/uL Absolute Immature Granulocyte (auto 0.03 0-1 K/uL B-Type Natriuretic Peptide 18 0-100 pg/mL Current Medications Medications (Trade) Dose Ordered Sig/Maggie Route PRN Reason Start Time Stop Time Status Last Admin Dose Admin Acetaminophen (TYLenol 325MG TAB) 650 mg Q4H PRN PO TEMPERATURE GREATER THAN 101.5 02/02/25 18:00 03/04/25 17:59 Acetaminophen (TYLenol 325MG TAB) 650 mg Q6H PRN PO MILD PAIN (1-3) 02/02/25 18:00 03/04/25 17:59 Aspirin (Aspirin 81mg Ec Tab) 81 mg DAILY PO 02/03/25 09:00 03/05/25 08:59 02/03/25 09:45 81 MG Dextrose (D50w) 50 ml AD PRN IV HYPOGLYCEMIA PROTOCOL 02/02/25 18:00 03/04/25 17:59 Enoxaparin Sodium (Lovenox) 30 mg DAILY SQ 02/03/25 09:00 03/05/25 08:59 02/03/25 09:47 30 MG Famotidine (Pepcid 20mg Tab) 20 mg Q48H PO 02/02/25 21:00 03/04/25 20:59 02/02/25 21:57 20 MG Glucagon (Glucagon 1mg Kit) 1 mg AD PRN IM HYPOGLYCEMIA PROTOCOL 02/02/25 18:00 03/04/25 17:59 Insulin Human Regular (humuLIN R 100 UNIT/ML 3ML) INSULIN SLIDING SCAL... ACHS SQ 02/02/25 21:00 03/04/25 20:59 02/03/25 06:35 2 UNIT Losartan Potassium (CozAAR 25MG TAB) 25 mg DAILY PO 02/03/25 09:00 03/05/25 08:59 02/03/25 09:45 25 MG Magnesium Sulfate 50 ml @ 0 mls/hr PROTOCOL PRN IV MAGNESIUM PROTOCOL 02/02/25 18:00 03/04/25 17:59 Metoprolol Tartrate (loprESSOR) 12.5 mg BID PO 02/02/25 21:00 03/04/25 20:59 02/03/25 09:44 12.5 MG Morphine Sulfate (morPHINE 2MG SYG) 2 mg Q4H PRN IVP SEVERE PAIN (7-10) 02/02/25 18:30 02/09/25 18:29 Ondansetron HCl (zoFRAN 4MG INJ) 4 mg Q6H PRN IVP NAUSEA/VOMITING 02/02/25 18:00 03/04/25 17:59 DIAGNOSTICS / RADIOLOGY: [ ] ASSESSMENT: [Chest pain r/o ACS, POA Allergic reaction, unknown cause, POA Hyperglycemia with diabetes mellitus, POA Hypertension, POA Hyperlipidemia ] PLAN: Patient remains admitted to medical floor Check serial cardiac enzymes every 8 hours 3 sets to rule out myocardial injury Started on antiplatelet agents, beta regina, nitrates, low molecular weight AC, morphine, oxygen. Echocardiogram ordered, we will follow up. Case discussed with energy project manager, atypical chest pain, pain reproducible upon palpation to the chest wall area. Okay to discharge from their standpoint. Patient will be on a.c. HS glucometer and insulin sliding scale Patient will be on diabetic diet Add when necessary meds for nausea, vomiting, pain, constipation, insomnia. Continue Lovenox and Protonix for DVT and GI prophylaxis. FULL CODE Plan of action discussed, all questions answered, agreed and understood the information provided. Total time spent greater than 35 minutes. ANAHY SILVA MD Feb 03, 2025 10:54
[2025-02-03 12:14] VITALS: BP 150/73; PULSE 82; RESP 16; TEMP 97.5
--- NOTE | 2025-02-03 13:25 | NUR ---
DCP: HOME Pt currently lives with her Jagdish [phone] in their home. Pt does not have any insecurities with food, custodial, and/or utilities. Pt does not have DME, home health, or provider services. Pt is able to complete ADLs independently. PCP is Dr Ned Farias and uses [facility] for any RX needs. At ME pt will return home and family will assist with transportation. Addendum: 02/03/25 at 1328 by BENNIE BERRIOS SS Amended: Links added.
[2025-02-03 13:46] LABS: HEMATOCRIT 31.1 % (36-48); MEAN CORPUSCULAR HEMOGLOBIN 31.5 pg (27.0-33.0); MEAN CORPUSCULAR HGB CONC 33.8 g/dL (32.0-36.0); MEAN CORPUSCULAR VOLUME 93.4 fL (79-99); RED BLOOD CELL COUNT(AUTO) 3.33 MIL/uL (4.00-5.50); WHITE BLOOD COUNT (AUTO) 12.2 K/uL (4.8-10.8)
--- NOTE | 2025-02-03 14:14 | CONS ---
[facility] Cardiology Consultation Note Date Patient Seen: Feb 03, 2025 Time of Visit: 14:10 CHIEF COMPLAINT: [ Reproducible chest pain] SOURCE: [ The patient and the family, who are generally reliable] OUTPATIENT PEN MAKER: [Dr. Brittnee snow ] OUTPATIENT PRIMARY MD: [ ] HPI: [ Patient is a 84-year-old female with a history of hypertension, dyslipidemia, type 2 diabetes, and dysphagia. Yesterday after lunch she felt like there was something stuck in her sternum after swallowing. This was painful, exacerbated by rubbing the area and deep breathing. There was no associated shortness of breath, diaphoresis, palpitations or dizziness. EMS was activated and she was given a sublingual nitroglycerin in the field, which seemed to help. Symptoms resolved completely after she either coughed or vomited something up. ER staff noticed a diffuse rash and administered IV steroid due to suspected allergic reaction to the nitroglycerin. EKG showed sinus with no ischemic changes. Troponins have been negative x2, BNP 13. Chest x-ray unremarkable. White count this morning 12,000 after receiving Solu-Medrol. Since this episode yesterday, she has not had any further of that globus sensation are sternal chest discomfort. She does report issues with dysphagia in the past. She has not noticed any recent dyspnea on exertion, edema, exercise intolerance or other symptoms. She has never smoked. No family history of heart disease. Patient maintains she has seen Dr. Brittnee snow in the past, but under the name and date here in the hospital, there are no records of this at [facility], [facility], or [facility]. She has not been seen in any of the [facility] offices] REVIEW OF SYSTEMS: He has does have diabetes. No fever, cough, chronic nausea vomiting, unexplained weight changes. PAST MEDICAL HISTORY: [ Hypertension Dyslipidemia Type 2 diabetes Dysphagia] FAMILY HISTORY: [ Negative for heart disease] SOCIAL HISTORY: [ No alcohol or tobacco use ever. She is a lifelong vegetarian] Coded Allergies: No Known Drug Allergies (Unverified Allergy, Unknown, 02/02/25) Active Scripts Aspirin (ASPIRIN 81 MG ECTAB) 81 Mg Ectab, 81 MG PO DAILY for 30 Days, #30 TAB.EC 1 Refill Prov:ANAHY SILVA MD 02/03/25 Reported Medications Losartan Potassium (Losartan Potassium) 100 Mg Tablet, 1 TAB PO DAILY for 30 Days, #30 TAB 0 Refills 02/02/25 Glimepiride (Glimepiride) 4 Mg Tablet, 1 TAB PO DAILY for 30 Days, #30 TAB 0 Refills 02/02/25 Pravastatin Sodium (Pravastatin Sodium) 40 Mg Tablet, 80 MG PO HS, TAB 02/02/25 Amlodipine Besylate (Amlodipine Besylate) 5 Mg Tablet, 1 TAB PO DAILY for 30 Days, #30 TAB 0 Refills 02/02/25 Metformin HCl (Metformin HCl ER) 1,000 Mg [id number], 1 TAB PO BID for diabetes for 30 Days, #60 TAB 0 Refills 02/02/25 PHYSICAL EXAMINATION: GENERAL: [Resting comfortably, no acute distress.] HEENT: [Atraumatic. Hearing is intact. No facial asymmetry, nasal discharge, icterus or lid lag.] NECK: [Symmetric. Midline trachea. No bruits noted bilaterally.] CARDIOVASCULAR: [Rhythm and rate regular. No murmur. No sternal discomfort with palpation or deep breathing] No edema. Dorsal pulses 2+ bilaterally. RESPIRATORY: [Lungs clear to the bases. No retractions, wheezes or rhonchi.] GASTROINTESTINAL: [Benign, soft, nontender, nondistended.] MUSCULOSKELETAL: [No amputations. Range of motion is grossly normal.] SKIN: [No ecchymosis, erythema or ulcers. Warm to touch.] NEUROLOGIC: [No tremors. Speech is clear.] PSYCHIATRY: [Alert and oriented x 3. Cooperative and pleasant.] Vital Signs (last 8hr) Date Time Temp Pulse Resp B/P (MAP) Pulse Ox O2 Delivery O2 Flow Rate FiO2 02/03/25 12:14 97.5 82 16 150/73 100 Room Air 02/03/25 07:55 98.1 80 18 153/81 96 Room Air Hematology Labs: Test 02/03/25 13:35 02/02/25 13:34 Range/Units White Blood Count 12.2 #H 4.8-10.8 K/uL Red Blood Count 3.33 L 4.00-5.50 MIL/uL Hemoglobin 10.5 L 12.0-16.0 g/dL Hematocrit 31.1 L 36-48 % Mean Corpuscular Volume 93.4 79-99 fL Mean Corpuscular Hemoglobin 31.5 27.0-33.0 pg Mean Corpuscular Hemoglobin Concent 33.8 32.0-36.0 g/dL Red Cell Distribution Width 13.0 11.0-15.5 % Platelet Count 202 130-400 K/uL Mean Platelet Volume 9.6 7.5-10.5 fL Nucleated Red Blood Cells 0.0 0.0-0.19 % Immature Granulocyte % (Auto) 0.5 0-1 % Neutrophils (%) (Auto) 58.0 40.0-77.0 % Lymphocytes (%) (Auto) 32.7 21.0-51.0 % Monocytes (%) (Auto) 6.0 3.0-13.0 % Eosinophils (%) (Auto) 2.6 0.0-8.0 % Basophils (%) (Auto) 0.2 0.0-5.0 % Neutrophils # (Auto) 3.2 1.8-7.7 K/uL Lymphocytes # (Auto) 1.8 1.0-4.8 K/uL Monocytes # (Auto) 0.3 0.1-1.0 K/uL Eosinophils # (Auto) 0.14 0.00-0.70 K/uL Basophils # (Auto) 0.01 0.00-0.20 K/uL Absolute Immature Granulocyte (auto 0.03 0-1 K/uL Chemistry Labs: Test 02/03/25 10:39 02/03/25 09:16 02/03/25 05:37 02/02/25 13:34 Range/Units Whole Blood Glucose 225 H 70-110 MG/DL Troponin I High Sensitivity 12 4-50 ng/L Sodium Level 136 136-145 mmol/L Potassium Level 4.3 3.5-5.1 mmol/L Chloride Level 104 101-111 mmol/L Carbon Dioxide Level 22 21-32 mmol/L Blood Urea Nitrogen 16 7-18 mg/dL Creatinine 0.8 0.5-1.0 mg/dL Glomerular Filtration Rate Calc 74 >90 mL/min Random Glucose 198 H 70-105 mg/dL Total Calcium 9.2 8.5-10.1 mg/dL Magnesium Level 1.90 1.80-2.40 mg/dL B-Type Natriuretic Peptide 18 0-100 pg/mL Current Medications Medications (Trade) Dose Ordered Sig/Maggie Route Start Time Stop Time Status Last Admin Dose Admin Amlodipine Besylate (NorvASC 5MG TAB) 5 mg DAILY PO 02/04/25 09:00 03/06/25 08:59 Aspirin (Aspirin 81mg Ec Tab) 81 mg DAILY PO 02/03/25 09:00 03/05/25 08:59 02/03/25 09:45 81 MG Atorvastatin Calcium (LIPItor 20MG) 20 mg HS PO 02/03/25 21:00 03/05/25 20:59 Enoxaparin Sodium (Lovenox) 30 mg DAILY SQ 02/03/25 09:00 02/03/25 10:56 DC 02/03/25 09:47 30 MG Famotidine (Pepcid 20mg Tab) 20 mg Q48H PO 02/02/25 21:00 03/04/25 20:59 02/02/25 21:57 20 MG Insulin Human Regular (humuLIN R 100 UNIT/ML 3ML) INSULIN SLIDING SCAL... ACHS SQ 02/02/25 21:00 03/04/25 20:59 02/03/25 06:35 2 UNIT Losartan Potassium (CozAAR 100MG TAB) 100 mg DAILY PO 02/04/25 09:00 03/06/25 08:59 Losartan Potassium (CozAAR 25MG TAB) 25 mg DAILY PO 02/03/25 09:00 02/03/25 10:57 DC 02/03/25 09:45 25 MG Metoprolol Tartrate (loprESSOR) 12.5 mg BID PO 02/02/25 21:00 02/03/25 10:57 DC 02/03/25 09:44 12.5 MG EKG: [ ] Personally interpreted. No ischemia. RADIOLOGY: [Chest x-ray unremarkable. Echo is pending ] ASSESSMENT: [ Reproducible, noncardiac chest pain Suspected nitroglycerin allergy Dysphagia Type 2 diabetes Leukocytosis, secondary to steroids Hypertension Dyslipidemia] PLAN: [ On routine history, she clearly describes on multiple occasions sternal chest discomfort worse with rubbing and with deep breathing, prompting Cardiology consult. EKG and troponins were both unremarkable. Symptoms are not consistent with a cardiac cause. An echo has been ordered; if this is unremarkable, she can be discharged to follow up with Dr. Brittnee Snow.] Patient was seen and examined and interviewed personally by myself Dr. Dorsey and echocardiogram results have returned and they are normal. Patient's has been instructed that she can be dismissed home and I would like to her to follow up with Dr. Brittnee Snow in 1-2 weeks CORBIN MOON Feb 03, 2025 14:14 MEGAN DORSEY MD Feb 04, 2025 08:07
[2025-02-03] MEDS ORDERED: AEC81 PO (14:49)
[2025-02-03 16:04] VITALS: BP 132/66; PULSE 67; RESP 16; TEMP 97.6
--- NOTE | 2025-02-03 17:11 | HMCSR ---
APPROVED REPORT EXAM: Two-dimensional and M-mode echocardiogram with Doppler and color Doppler. INDICATION ICD: Chest Pain 2D Dimensions RVDd3.2 cmLVEF(%)75.9 (>50%)LVED Vol(simp.)73.0 mL IVSd1.1 (0.7-1.1cm)FS(%)44 %LVES Vol(simp.)29.0 mL LVDd3.6 (3.8-5.6cm)LA (2D)3.7 (1.6-4.0cm)LVEF(%, simp.)60 % PWd1.0 (0.7-1.1cm)Ao Root(2D)2.3 (2.0-3.7cm)LA ESV INDEX (BP)42.32 mL/m2 LVDs2.0 (2.5-4.0cm)LVOT diam1.8 (1.8-2.4cm) IVC diam1.2 cm Deformation Strain Apical 4-17.8 % Apical 2-19.2 % Apical 3-16.6 % Global Strain-17.8 % M-Mode Dimensions EPSS0.1 cm LA (MM)3.8 (1.6-4.0cm) Ao Root(MM)2.2 (2.0-3.7cm) Aortic Valve AoV Vmax1.8 m/To Peak GR13.6 mmHgLVOT Vmax1.1 m/s AoV VTI0.4 mAo Mean GR7.4 mmHgLVOT VTI0.29 m SUSAN (VMAX)1.47 cm2AVA (VTI) 1.6 cm2 Mitral Valve MV E Vmax93.3 cm/sDECEL Osrx482 ms MV A Bdxh616.9 cm/sP 1/2 T61 ms E/A ratio0.7MVA (PHT)3.6 cm2 TDI E/E' Jwtlwe58.1E/E' Cadojon86.3 Medial E' Peak V3.57 cm/sLateral E' Peak V4.60 cm/s Pulmonary Valve PV Vmax1.0 m/sPV VTI0.24 mPV Mean GR2.0 mmHg PV Peak GR3.7 mmHg Tricuspid Valve TR Vmax2.4 m/sRVSP19.9 mmHg TR Peak GR25.2 mmHg Left Ventricle The left ventricle is normal size. There is normal LV segmental wall motion. There is normal left patricia tricular wall thickness. LVEF is 55-60%. Stage I diastolic dysfunction. Right Ventricle The right ventricle is normal size. The right ventricular systolic function is normal. Atria The left atrium is moderately dilated. The right atrium size is normal. Aortic Valve The aortic valve is normal in structure. No aortic regurgitation is present. There is no aortic valvu lar stenosis. Mitral Valve The mitral valve is normal in structure. Mitral regurgitation is trace. There is no mitral valve sten osis. Tricuspid Valve The tricuspid valve is normal in structure. There is trivial tricuspid valve regurgitation noted. Pulmonic Valve The pulmonary valve is normal in structure. There is no pulmonic valvular regurgitation. Great Vessels The aortic root is normal in size. The IVC is normal in size and collapses >50% with inspiration. Pericardium There is no pericardial effusion. Conclusion LVEF is 55-60%. Stage I diastolic dysfunction. There is normal LV segmental wall motion. Mitral regurgitation is trace. There is trivial tricuspid valve regurgitation noted.
[2025-02-03] MEDS ORDERED: atorVAStatin 20 MG TABLET PO SCH (21:00)
[2025-02-04] MEDS ORDERED: LoSARTan 100 MG TABLET PO SCH (09:00)
[2025-02-04] MEDS ORDERED: amLODIPine 5 MG TAB PO SCH (09:00)
== END 2025-02-03 18:49 | disposition home or self-care (01) ==
LOC: EDH 13:18 → EDHIP 13:19 → 4DH 02-03 01:44
PROVIDERS: ADMIT Internal Medicine; ATTEND Internal Medicine
DX: R07.89 Other chest pain (principal); Z20.822 Contact with and (suspected) exposure to COVID-19; E11.65 Type 2 diabetes mellitus with hyperglycemia; D72.829 Elevated white blood cell count, unspecified; E78.5 Hyperlipidemia, unspecified; I11.9 Hypertensive heart disease without heart failure; T38.0X5A Adverse effect of glucocorticoids and synthetic analogues, initial encounter; R13.10 Dysphagia, unspecified; Z79.84 Long term (current) use of oral hypoglycemic drugs; Z79.82 Long term (current) use of aspirin; Z79.899 Other long term (current) drug therapy; Y92.89 Other specified places as the place of occurrence of the external cause
CPT/HCPCS: 96374; 99285; 84484 ×6; 80048 ×2; 83880; 85025; 87880; 87804 ×2; 82948 ×4; 81001; 36415 ×2; 87635; 71045; 93005; 96372; 83735; 85027 ×2; 93306; 93356; J1815; G0378 ×24; J2919; J1650